=== PATIENT | male | born 1980 | race Caucasian/White ===

== ENCOUNTER 2017-02-17 23:12 | Emergency (ER) | payer BC, OTHER ==
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
--- OUTSIDE RECORDS SUMMARY | 2017-02-17 23:42 | XMS REPORT | CCD ---
:1980 Author Name JUANJO MANCIA Address [address] Unavailable [place], [place] [id number] Care Team Providers Name Role Phone SHELLY BENITES, KANDICE Napoles Attending Physician Unavailable Vital Signs Unknown or Not Available. Allergies Allergy Code Allergy Type Reaction Status No Known Allergies 0 No known allergies Active Procedures Unknown or Not Available. History of Immunizations Immunization Code Date Novel [id number], nasal 125 08/21/2009 Influenza, seasonal, injectable 141 07/12/2015 no vaccine administered 998 1980 Problems Problem Code Start Date Resolved Date Status PNEUMONIA [id number] 10/23/2012 Active Results Unknown or Not Available. Active Medications Unknown or Not Available. Medications Administered During Visit Unknown or Not Available. Encounters Encounter Diagnosis Diagnosis Code Start Date Laceration without foreign body of right middle finger [id number] 08/26/2015 without damage to nail, initial encounter Social History Smoking Status Code Start Date End Date Current every day smoker [id number] 1994 Patient Decision Aids Unknown or Not Available. Discharge Instructions You were admitted to [facility] on 08/26/2015 with a principal diagnosis of Laceration without foreign body of right middle finger without damage to nail, initial encounter. You were discharged from [facility] on 08/26/2015. Should you have any questions prior to discharge, please contact a member of your healthcare team. If you have left the hospital and have any questions, please contact your primary care physician. Chief Complaint and Reason For Visit Chief Complaint Date of Onset LACERATIONS ON 3 FINGERS OF RT HAND Function Status Unknown or Not Available. Plan of Care Unknown or Not Available. Referral/Transition of Care Unknown or Not Available.
--- OUTSIDE RECORDS SUMMARY | 2017-02-17 23:42 | XMS REPORT | Continuity of Care Document ---
:1980 Author Organization [facility] ([facility]) Address [address] [place] [address] Phone [phone] Care Team Providers Name Role Phone Kwame Gould Primary Care Provider [phone] Source Comments This disclosure is being made pursuant to the Care Everywhere program, applicable federal and state laws, and may not contain all informaitonavailable regarding this patient.[facility] ([facility]) Active Allergies and Adverse Reactions No Known Allergies Current Medications Prescription Sig. Disp. Refills Start Date End Date Status zolpiDEM 5 mg tablet 07/26/2016 Active traMADol 50 mg tablet 07/14/2016 Active methylphenidate 27 mg CR tablet 07/21/2016 Active Active Problems Patient Care Coordination Note Dakota Menon is a 36 y.o. male who reported a work injury on 04/16/2016 while working for [employer]. He was diagnosed with lumbar/piriformis myofascial strain. He was treated with physical therapy with si gnificant relief. He had intermittent numbness in his toes. MRI of the lumbar spine on 04/16/2016 was reported as unremarkable.He was released for full unrestricted duty at 8 hours per shift on 06/06. He reported that had not done well, he still has left lumbar pain that increased with his return to work. He described a new symptom of left anterior thigh pain. Problem Noted Date Encounter related to worker's compensation claim 04/16/2016 lumbar pain 2015 Back pain 04/16/2016 Social History Tobacco Use Types Packs/Day Years Used Date Current Every Day Smoker Cigarettes 0.5 20 Smokeless Tobacco: Never Used Alcohol Use Drinks/Week oz/Week Comments Yes 3 Cans of beer occasional Last Filed Vital Signs Vital Sign Reading Time Taken Blood Pressure 129/76 07/30/2016 9:39 AM CDT Pulse 79 07/30/2016 9:39 AM CDT Temperature 36.1 C (97 F) 07/30/2016 9:39 AM CDT Respiratory Rate 18 04/16/2016 2:43 PM CDT Height 1.981 m (6' 6") 07/30/2016 9:39 AM CDT Weight 83.5 kg (184 lb 1.4 oz) 07/30/2016 9:39 AM CDT Body Mass Index 21.28 07/30/2016 9:39 AM CDT Oxygen Saturation 99% 04/16/2016 2:43 PM CDT Plan of Care Health Maintenance Due Date Last Done Comments Hepatitis B Vaccine (1 of 3 - Primary Series) 1980 Tdap Vaccine 1989 Lipid Disorder Screening 1996 MMR Vaccine 1996 Td Vaccine 1996 Pneumococcal Vaccine (1 of 1 - PPSV23) 1997 Influenza Vaccine: Seasonal (#1) 05/05/2016 Results from Last 3 Months Not on file
[2017-02-17 23:47] LABS: Hematocrit 40.9 % (42.0-52.0); Hemoglobin 14.1 gm/dL (13.5-18.0); Mean Cell Volume 89.3 fl (78-100); Mean Corpuscular Hemoglobin 30.8 pg (27-31); Mean Corpuscular Hgb Conc 34.5 g/dl (32-36); Mean Platelet Volume 11.3 fl (6.0-9.5); Neutrophil # 6.3 K/mm3 (1.3-6.0); Platelet Count 135 K/mm3 (150-450); Red Blood Count 4.58 M/mm3 (4.7-6.0); Red Cell Distribution Width 12.5 % (11.5-14.0); White Blood Count 10.1 K/mm3 (4.0-10.5)
[2017-02-17] MEDS ORDERED: MORPHINE SULFATE 2 MG/ML DISP.SYRIN IV ONE (23:56)
[2017-02-17] MEDS ORDERED: ONDANSETRON HCL/PF 2 MG/ML VIAL IV ONE (23:56)
[2017-02-17] MEDS ORDERED: MORPHINE SULFATE 2 MG/ML DISP.SYRIN ONE (23:57)
[2017-02-17] MEDS ORDERED: ONDANSETRON HCL/PF 2 MG/ML VIAL ONE (23:57)
[2017-02-18 00:03] LABS: Albumin * 3.7 gm/dl (3.4-5.0); Anion Gap 11.8 mmol/L (6.8-13.8); BUN/Creatinine Ratio 11.8 (9.0-21.6); Ca. Corrected For Albumin 8.6 mg/dL (8.4-10.2); Calcium * 8.7 mg/dL (7.9-10.9); Carbon Dioxide 29.3 mmol/L (24-32.6); Potassium 3.1 mmol/L (3.4-4.6); Total Protein 6.6 gm/dL (6.2-8.2)
[2017-02-18] MEDS ORDERED: MORPHINE SULFATE 2 MG/ML DISP.SYRIN IV ONE (00:12)
[2017-02-18] MEDS ORDERED: MORPHINE SULFATE 4 MG/ML SYRG ONE (00:14)
[2017-02-18] MEDS ORDERED: HYDROmorphone HCL 1 MG/ML DISP.SYRIN IV ONE (00:48)
[2017-02-18] MEDS ORDERED: HYDROmorphone HCL 1 MG/ML DISP.SYRIN ONE (00:51)
[2017-02-18 00:56] VITALS: BP 130/86
== END 2017-02-18 01:04 | disposition short-term general hospital (02) ==
LOC: ER 23:12
DX: S02.401A Maxillary fracture, unspecified side, initial encounter for closed fracture (principal); S02.2XXA Fracture of nasal bones, initial encounter for closed fracture; S02.81XA Fracture of other specified skull and facial bones, right side, initial encounter for closed fracture; S02.82XA Fracture of other specified skull and facial bones, left side, initial encounter for closed fracture; Y04.8XXA Assault by other bodily force, initial encounter; Y93.89 Activity, other specified; Y92.007 Garden or yard of unspecified non-institutional (private) residence as the place of occurrence of the external cause